=== PATIENT | female | born 1955 | race Caucasian/White ===

== ENCOUNTER 2016-12-18 06:01 | Day surgery (SDC) | payer BC ==
--- NOTE | ~2016-12-18 | OP ---
Record Of Operation [facility] [place] [address] [place]. [address] NAME: EMERY JACOBSEN : 51 STATUS : REG [facility]#: [id number] AGE: 61 ADM/REG DATE : 12/18/16 MR#: [id number] REPORT SERV DATE: 12/18/16 DICTATED BY: SHAD COLON III DATE: 12/18/16 REPORT STATUS : Draft TRANSCRIBED BY: MODLaura DATE: 12/18/16 DATE OF PROCEDURE: 12/18/2016 PREOPERATIVE DIAGNOSIS: Symptomatic umbilical hernia. POSTOPERATIVE DIAGNOSIS: Symptomatic umbilical hernia, incarcerated umbilical hernia. PROCEDURE: Repair of incarcerated umbilical hernia. ANESTHESIA: General with intubation. COMPLICATIONS: None. ESTIMATED BLOOD LOSS: Less than 5 mL. SPECIMENS: None. DRAINS: None. LAP AND SPONGE COUNT: Correct x3. BRIEF HISTORY: This 61-year-old female presented with a symptomatic umbilical hernia. It was felt that open repair of this hernia was indicated. This procedure, the risks, benefits, and alternatives, including but not limited to the risk for bleeding, infection, enterotomy, injury to any abdominal structure, postoperative small bowel obstruction, ileus, recurrence of the hernia, seroma formation or hematoma formation, and unforeseen complications including deep venous thrombosis, pulmonary embolus, myocardial infarction, stroke, pneumonia, and were explained to the patient prior to the surgery. Her questions were answered. She understood the risks and agreed to the surgery as planned. DESCRIPTION OF PROCEDURE: After being properly identified, and after discussing the risks and benefits of the surgery with her again in the preoperative area, the patient was taken to the operating room, and placed in the supine position on the operating room table. General anesthesia was administered, and she was intubated without difficulty. The abdomen was prepped and draped sterilely in the usual fashion. After an appropriate "time-out" per JCAHO standards, a small incision was made along the inferior aspect of the navel. The incision was continued through the subcutaneous tissue. Hemostasis was controlled with the cautery. Using sharp dissection, the navel was raised superiorly. There was omentum chronically incarcerated within the hernia. Using sharp dissection, dissected down to the fascia. The hernia sac was excised. The omentum was carefully reduced back into the abdominal cavity. The fascial defect was small, about 1 cm to 1.5 cm in size. Using sharp dissection, the skin and subcutaneous tissue around the defect anteriorly was fully mobilized so as to adequately and fully expose the fascia. There were some adhesions between the omentum in the underside of the fascia posteriorly. These were carefully divided around the entire periphery of the defect so as to clearly define the fascial edges anteriorly and posteriorly. Hemostasis was assured. The fascial edges were then Record Of Operation [address] [place]. [address] NAME: EMERY JACOBSEN : 51 STATUS : REG [facility] [place] PAT#: [id number] AGE: 61 ADM/REG DATE : 12/18/16 MR#: [id number] REPORT SERV DATE: 12/18/16 DICTATED BY: SHAD COLON III DATE: 12/18/16 REPORT STATUS : Draft TRANSCRIBED BY: RHIANNON DATE: 12/18/16 reapproximated with interrupted #1 Prolene sutures. The fascia came together nicely with no tension. It was felt that mesh repair was not required. Hemostasis was assured. The subcutaneous tissue was closed with running 3-0 chromic suture. The skin was closed with running subcuticular 4-0 Monocryl stitch. The incision was injected with 0.5% Marcaine. Dressings were applied. Anesthesia was reversed, and the patient was taken to the recovery room in stable condition. She tolerated the procedure well. Her family was informed the results of the surgery. The patient will be discharged when stable and comfortable, and able to void and ambulate. Her family was advised that she should keep the wound clean and dry for 48 hours, that she should not drive for three to four days after surgery or while using narcotics, that she should resume her usual medications that she should not perform any heavy lifting for five to six weeks. She has been asked to return in two weeks for followup or sooner if any fever, chills, wound drainage, or other problems prior to that time. She was given a prescription for Percocet 7.5 one t.i.d., #12, as needed for pain, which she was advised not to use while driving or with other narcotics. SUKH/RHIANNON Shad Colon III, M.D. / [id number] CC: Joe Donovan III, M.D.
--- NOTE | ~2016-12-18 | PREOPHP ---
PreOp History and Physical [id number] [place]. [address] NAME: EMERY JACOBSEN : 51 STATUS : [facility]#: [id number] AGE: 61 ADM/REG DATE : 12/18/16 MR#: [id number] REPORT SERV DATE: 03/06/17 DICTATED BY: SHAD AUGUSTE III DATE: 03/06/17 REPORT STATUS : Draft TRANSCRIBED BY: MODLaura DATE: 03/06/17 (This is a second history and physical on this patient, which was initially dictated prior to surgery). HISTORY OF PRESENT ILLNESS: This 61-year-old female comes to the operating for repair of a symptomatic umbilical hernia. Past medical history, review of systems, and physical exam, please see previously dictated history and physical. ASSESSMENT: A 61-year-old female with symptomatic umbilical hernia. PLAN: The patient comes to the operating room now for open repair of this umbilical hernia. This procedure, the risks, benefits, and alternatives, including, but not limited to the risk for bleeding, infection, enterotomy, injury to abdominal structure, postop small bowel obstruction, ileus, seroma formation, hematoma formation, recurrence of the hernia, and unforeseen complications including deep venous thrombosis, pulmonary embolus, myocardial infarction, stroke, pneumonia, and , have been explained to the patient prior to surgery. Her questions were answered. She understands the risks and agrees to surgery as planned. SUKH/RHIANNON Shad Auguste III, M.D. / [id number] CC: Joe Donovan III, M.D.
[~2016-12-18 06:01] MED LIST: ADVIL PO; MELATONIN2.5 M1 PO; ZYRTEC ALLGY10 MG PO
== END 2016-12-18 15:14 | disposition home or self-care (01) ==
LOC: SDC 06:01
PROVIDERS: Surgery
PROC: 0WQF0ZZ Repair Abdominal Wall, Open Approach (ICD-10-PCS; principal; 2016-12-18 07:30)
DX: K42.0 Umbilical hernia with obstruction, without gangrene (principal); F41.9 Anxiety disorder, unspecified; F32.9 Major depressive disorder, single episode, unspecified; M19.90 Unspecified osteoarthritis, unspecified site; M48.00 Spinal stenosis, site unspecified; E66.01 Morbid (severe) obesity due to excess calories; Z68.41 Body mass index [BMI] 40.0-44.9, adult; Z88.1 Allergy status to other antibiotic agents; Z90.49 Acquired absence of other specified parts of digestive tract; Z79.899 Other long term (current) drug therapy; Z98.890 Other specified postprocedural states
CPT/HCPCS: 71020; 80053; 82962; 85025; 87641; 93005; A9270-GY; J0690; J1170; J2250; J2405; J2550; J2710; J3010